=== PATIENT | male | born 1970 | race Caucasian/White ===

== ENCOUNTER → 2016-11-01 | Outpatient (REF) | LOC: WSOH 08:02 | DX: Z02.89 Encounter for other administrative examinations (principal) ==

== ENCOUNTER → 2020-09-02 | Outpatient (CLI) | payer OTHER | LOC: COL.RAD 10:06 | DX: M47.816 Spondylosis without myelopathy or radiculopathy, lumbar region (principal); M48.061 Spinal stenosis, lumbar region without neurogenic claudication; M96.1 Postlaminectomy syndrome, not elsewhere classified | CPT/HCPCS: A9585 ==

== ENCOUNTER 2020-09-09 16:02 | Inpatient (IN) | payer BC ==
[~2020-09-09] VITALS: Ht 198.1 cm; Wt 135.6 kg
[2020-09-09] MEDS ORDERED: DESYREL 100MG100 MG PO (16:15)
[2020-09-09] MEDS ORDERED: XANAX 1MG1 MG PO (16:15)
[2020-09-09] MEDS ORDERED: SOMA250 MG PO (16:16)
[2020-09-09] MEDS ORDERED: ULTRAM 50MG TAB50 MG PO (16:16)
[2020-09-09] MEDS ORDERED: OXYCONTIN 80MG80 MG PO (16:17)
[2020-09-09] MEDS ORDERED: OXYCONTIN 20MG20 MG PO (16:17)
[2020-09-09 16:33] LABS: HEMATOCRIT 41.4 % (42.0-52.0); HEMOGLOBIN 13.7 g/dl (13.5-18.0); MEAN CELL VOLUME 90 fl (80.0-100.0); MEAN CORPUSCULAR HEMOGLOBIN 30 pg (27.0-31.0); MEAN CORPUSCULAR HGB CONC 33 g/dl (33.0-37.0); MEAN PLATELET VOLUME 8.9 fl (7.4-10.4); PLATELET COUNT 301 K/mm3 (130-400); RED BLOOD COUNT 4.58 M/mm3 (4.20-5.60)
[2020-09-09 17:03] LABS: ALCOHOL(ethanol),MEDICAL < 10 mg/dL; TROPONIN-I < 0.012 ng/mL (0.000-0.035)
[2020-09-09 17:26] LABS: BAND 1 % (0-10); EOSINOPHIL 2 % (0-4); LYMPHOCYTE 26 % (20.0-51.0); NEUTROPHILS 60 % (42.0-75.2)
[2020-09-09 17:28] LABS: PLATELET ESTIMATE NORMAL (NORMAL)
[2020-09-09 17:33] LABS: ALBUMIN 3.9 gm/dL (3.5-5.0); BILIRUBIN,TOTAL 0.8 mg/dL (0.0-1.0); CALCIUM 8.7 mg/dL (8.4-10.2); CREATININE, serum 1.28 (0.66-1.25); MAGNESIUM 2.4 mg/dL (1.6-2.3); POTASSIUM 4.4 mmol/L (3.4-5.0); TOTAL PROTEIN 6.6 gm/dL (6.4-8.2)
[2020-09-09 17:53] LABS: COLLECTION METHOD CLEAN CATCH
[2020-09-09 18:06] LABS: MUCOUS Present /lpf; PH 5 (5-8); SQUAMOUS EPITHELIAL 0-2 /hpf; URINE APPEARANCE Clear; URINE BACTERIA None Seen /hpf; URINE BILIRUBIN Negative (NEGATIVE); URINE BLOOD Negative (NEGATIVE); URINE COLOR Straw; URINE GLUCOSE Negative (NEGATIVE); URINE KETONE Negative (NEGATIVE); URINE LEUKOCYTE ESTERASE Negative (NEGATIVE); URINE NITRATE Negative (NEGATIVE); URINE PROTEIN(semi-quant) Negative (NEGATIVE); URINE RBC 0-2 /hpf; URINE UROBILINOGEN Negative (NEGATIVE)
[2020-09-09 18:21] LABS: TRICYCLIC ANTIDEPRESS URINE NEGATIVE
[2020-09-09 21:11] VITALS: BP 142/79; PULSE 75; TEMP 97.7
--- NOTE | 2020-09-09 21:29 | NUR ---
Pt. sitting up in bed at this time. Pt. is A&OX3, assessment complete. INT to rt.and and lt. ac patent. Pt. reports pain to back at a 5 and pain to chest at a 4. Pt. denies further needs, call light within reach.
[2020-09-10 00:15] VITALS: BP 135/81; PULSE 70; TEMP 97.7
[2020-09-10 03:38] LABS: HEMATOCRIT 37.9 % (42.0-52.0); HEMOGLOBIN 12.6 g/dl (13.5-18.0)
[2020-09-10 04:10] VITALS: BP 129/70; PULSE 71; TEMP 97.9
[2020-09-10 07:08] LABS: CHOLESTEROL RISK RATIO 2.3
--- NOTE | 2020-09-10 07:20 | NUR ---
Lying in bed with eyes open. Minimal mid chest pain from the compressions that were performed. Denies any other pain at this time. Patient is alert and oriented x4. Discussed plan for today of having echo performed and cardiology to come in to see him. Patient verbalizes understanding and denies further needs.
[2020-09-10 07:25] VITALS: BP 122/77; PULSE 72; TEMP 98.5
[2020-09-10 09:45] LABS: BASO % 0.3 % (0.0-2.0); EOS # 0.1 (0.0-0.7); GRAN # 4.7 (1.4-6.5); GRAN % 80.6 % (42.2-75.2); HEMATOCRIT 37.2 % (42.0-52.0); HEMOGLOBIN 12.3 g/dl (13.5-18.0); LYMPH # 0.6 (1.2-3.4); LYMPH % 10.8 % (20.0-51.0); MEAN CELL VOLUME 91 fl (80.0-100.0); MEAN CORPUSCULAR HEMOGLOBIN 30 pg (27.0-31.0); MEAN CORPUSCULAR HGB CONC 33 g/dl (33.0-37.0); MEAN PLATELET VOLUME 8.9 fl (7.4-10.4); MONO # 0.4 (0.1-0.6); PLATELET COUNT 250 K/mm3 (130-400); RED BLOOD COUNT 4.07 M/mm3 (4.20-5.60); REDCELL DISTRIBUTION WIDTH-CV 13.2 % (11.5-14.5)
[2020-09-10 09:57] LABS: ALBUMIN 3.6 gm/dL (3.5-5.0); BILIRUBIN,TOTAL 1.1 mg/dL (0.0-1.0); CALCIUM 8.5 mg/dL (8.4-10.2); CREATININE, serum 0.85 (0.66-1.25); POTASSIUM 4.2 mmol/L (3.4-5.0); TOTAL PROTEIN 6.3 gm/dL (6.4-8.2)
[2020-09-10 11:26] VITALS: BP 127/75; PULSE 73; TEMP 97.9
--- NOTE | 2020-09-10 11:48 | NUR ---
Patient sitting up in bed and asks how much longer until he is able to get out of the hospital. Explain that it is important that we get the echo completed and that he see the commercial leasing agent to try to figure out why he went into cardiac arrest. Asked patient if there was somewhere or something going on that he was concerned about being in the hospital for and the patient declines. Explain that he had a big event happen with his heart stopping and it would be recommended to have the test done and see the specialist to try to figure out what happened. Patient says that his told him the same thing. Patient says that he understands and knows the importance of getting test done and seeing the specialist. Denies additional needs at this time.
--- NOTE | 2020-09-10 13:42 | NUR ---
Patient's in room with the patient. Dr. Mondragon wanted to speak with her when she came in. Contacted Dr. Mondragon and provided phone to spouse to speak with Dr. Mondragon. Patient was able to eat AHA diet without difficulty. Denies needs at this time.
--- NOTE | 2020-09-10 14:18 | NUR ---
First visit from the business system manager. No needs right now.
--- NOTE | 2020-09-10 15:10 | NUR ---
Echo being performed at bedside at this time.
[2020-09-10 15:42] LABS: HEMATOCRIT 37.2 % (42.0-52.0); HEMOGLOBIN 12.5 g/dl (13.5-18.0)
[2020-09-10 15:53] VITALS: BP 125/72; PULSE 76; TEMP 98
--- NOTE | 2020-09-10 16:31 | NUR ---
Patient sitting up in bed watching TV. Has been up independently in room. Has some soreness in mid chest from the compressions that were done. Having minimal low back pain at this time. Denies needs or concerns.
[2020-09-10 19:34] VITALS: BP 137/73; PULSE 69; TEMP 98.3
--- NOTE | 2020-09-10 20:52 | NUR ---
PT WANTING TO GO HOME, VERBALIZES WE AREN'T GIVING HIM HIS MEDS HE HAS BEEN TAKING FOR 7 YEARS AND JUST WANTS SOME EXPLANATION WHY HE WOULD NEED TO STAY. NOTIFIED DR PIERSON AND PHONE WAS GIVEN TO PATIENT TO SPEAK WITH DOCTOR.
[2020-09-10 21:19] LABS: HEMATOCRIT 39.1 % (42.0-52.0); HEMOGLOBIN 12.9 g/dl (13.5-18.0)
[2020-09-11 00:20] VITALS: BP 127/75; PULSE 73; TEMP 98.5
[2020-09-11 03:30] VITALS: BP 123/78; PULSE 66; TEMP 97.5
[2020-09-11 03:30] LABS: BASO % 0.9 % (0.0-2.0); EOS # 0.2 (0.0-0.7); EOS % 3.9 % (0-4.0); GRAN # 2.6 (1.4-6.5); GRAN % 58.3 % (42.2-75.2); HEMOGLOBIN 12.3 g/dl (13.5-18.0); LYMPH # 1.2 (1.2-3.4); LYMPH % 26.9 % (20.0-51.0); MEAN CELL VOLUME 89 fl (80.0-100.0); MEAN CORPUSCULAR HEMOGLOBIN 30 pg (27.0-31.0); MEAN CORPUSCULAR HGB CONC 34 g/dl (33.0-37.0); MEAN PLATELET VOLUME 8.5 fl (7.4-10.4); MONO # 0.4 (0.1-0.6); MONO % 9.8 % (1.7-9.3); PLATELET COUNT 221 K/mm3 (130-400); RED BLOOD COUNT 4.05 M/mm3 (4.20-5.60); REDCELL DISTRIBUTION WIDTH-CV 12.7 % (11.5-14.5)
[2020-09-11 03:35] LABS: HEMATOCRIT 35.9 % (42.0-52.0)
[2020-09-11 03:40] LABS: CALCIUM 8.4 mg/dL (8.4-10.2); CREATININE, serum 0.92 (0.66-1.25); POTASSIUM 4.5 mmol/L (3.4-5.0)
--- NOTE | 2020-09-11 06:21 | NUR ---
Patient resting in bed. Patient requested tylenol for chest pain from the compressions.
[2020-09-11 07:51] VITALS: BP 141/87; PULSE 75
[2020-09-11] MEDS ORDERED: MELATIN 3 MG-11 TAB PO (08:32)
--- NOTE | 2020-09-11 09:35 | NUR ---
SHIFT ASSESSMENT COMPLETED AND AM MEDICATIONS GIVEN AT THIS TIME. ECCHYMOSIS TO ABDOMEN NOTED. PATIENT REPORTS CHEST PAIN THAT IS WORSE WITH A COUGH AND HIS CHRONIC BACK PAIN. PATIENT NEURO CHECK NORMAL. VSS. DISCHARGE INSTRUCTIONS REVIEWED WITH PATIENT. PATIENT DENIES ANY QUESTIONS AT THIS TIME. RIGHT AC INT DISCONTINUED PER PENDING DISCHARGE. TIP INTACT. PATIENT TOLERATED WELL. TELEMETRY DISCONTINUED. PATIENT CHANGING, RIDE ON THEIR WAY. PATIENT PERSONAL BELONGINGS GATHERED.
--- NOTE | 2020-09-11 09:55 | NUR ---
PATIENT PERSONAL BELONGINGS GATHERED. PATIENT AMBULATED WITH SURGICAL STAFF TO PERSONAL VEHICLE. PATIENT DISCHARGED.
== END 2020-09-11 09:55 | disposition home or self-care (01) | DRG 917 ==
LOC: COL.ER 16:02 → SURG 18:23
PROVIDERS: Emergency Medicine; Nurse Practitioner Primary Care; Physician Assistant; ADMIT Student in an Organized Health Care Education/Training Program
DX: T40.2X1A Poisoning by other opioids, accidental (unintentional), initial encounter (principal); R09.2 Respiratory arrest; N17.9 Acute kidney failure, unspecified; M54.9 Dorsalgia, unspecified; G47.00 Insomnia, unspecified; R91.8 Other nonspecific abnormal finding of lung field; F41.9 Anxiety disorder, unspecified; F17.200 Nicotine dependence, unspecified, uncomplicated; G89.4 Chronic pain syndrome
CPT/HCPCS: 99239; C9113; J1650; J1885; J7030; Q9967

== ENCOUNTER → 2021-06-30 | Outpatient (CLI) | payer BC ==
[~2021-06-30] MED LIST: DESYREL 100MG100 MG PO; MELATIN 3 MG-11 TAB PO; OXYCONTIN 20MG20 MG PO; OXYCONTIN 80MG80 MG PO; SOMA250 MG PO; ULTRAM 50MG TAB50 MG PO; XANAX 1MG1 MG PO
== END ==
LOC: COL.RAD 13:49
DX: M47.816 Spondylosis without myelopathy or radiculopathy, lumbar region (principal)
CPT/HCPCS: J3301

== ENCOUNTER → 2021-08-15 | Outpatient (CLI) | payer BC | LOC: MHCPAIN 09:42 | DX: M47.816 Spondylosis without myelopathy or radiculopathy, lumbar region (principal); M54.50 Low back pain, unspecified; M53.3 Sacrococcygeal disorders, not elsewhere classified; G89.29 Other chronic pain | CPT/HCPCS: G0463 ==

== ENCOUNTER 2024-06-26 15:53 | Emergency (ER) | payer BC ==
[~2024-06-26] VITALS: Ht 195.6 cm; Wt 106.8 kg
[2024-06-26 15:57] VITALS: TEMP 98.3
[2024-06-26] MEDS ORDERED: VIRTUSSIN AC 1118 ML PO (17:46)
[2024-06-26 17:58] VITALS: BP 128/76; PULSE 92
== END 2024-06-26 17:59 | disposition home or self-care (01) ==
LOC: COL.ER 15:53
DX: J06.9 Acute upper respiratory infection, unspecified (principal); B34.9 Viral infection, unspecified

== ENCOUNTER 2024-07-01 12:02 | Emergency (ER) | payer BC ==
[~2024-07-01] VITALS: Ht 195.6 cm; Wt 102.3 kg
[~2024-07-01 12:02] MED LIST changes: +VIRTUSSIN AC 1118 ML PO
[2024-07-01] MEDS ORDERED: LR 1,000 ML IV ONE (14:45)
[2024-07-01] MEDS ORDERED: Pantoprazole 40 MG in NS 10 ML IV ONE (14:45)
[2024-07-01 15:23] LABS: BASO % 0.4 % (0.0-2.0); EOS # 0.1 K/mm3 (0.0-0.7); EOS % 0.9 % (0.0-4.0); GRAN # 5.7 K/mm3 (1.4-6.5); HEMATOCRIT 46.5 % (42.0-52.0); HEMOGLOBIN 16.1 g/dl (13.5-18.0); LYMPH # 1.1 K/mm3 (1.2-3.4); LYMPH % 14.6 % (20.0-51.0); MEAN CELL VOLUME 87 fl (80.0-100.0); MEAN CORPUSCULAR HEMOGLOBIN 30 pg (27-31); MEAN CORPUSCULAR HGB CONC 35 g/dl (33.0-37.0); MEAN PLATELET VOLUME 8.5 fl (7.4-10.4); MONO # 0.6 K/mm3 (0.1-0.6); MONO % 7.6 % (1.7-9.3); PLATELET COUNT 433 K/mm3 (130-400); RED BLOOD COUNT 5.37 M/mm3 (4.20-5.60)
[2024-07-01 15:48] LABS: ALBUMIN 3.7 g/dL (3.5-5.0); BILIRUBIN,TOTAL 0.7 mg/dL (0.2-1.2); CALCIUM 9.8 mg/dL (8.4-10.2); CREATININE, serum 0.99 mg/dL (0.72-1.25); POTASSIUM 3.9 mEq/L (3.5-4.5); TOTAL PROTEIN 8.1 g/dl (6.2-8.1)
[2024-07-01] MEDS ORDERED: MYCELEX10 MG/TAB MM (16:11)
[2024-07-01] MEDS ORDERED: PROTONIX 40MG T40 MG PO (16:11)
[2024-07-01 17:00] VITALS: BP 121/88; PULSE 88; TEMP 97.5
== END 2024-07-01 16:43 | disposition home or self-care (01) ==
LOC: COL.ER 12:02
PROVIDERS: Family Medicine
DX: K29.70 Gastritis, unspecified, without bleeding (principal); E86.0 Dehydration; R13.10 Dysphagia, unspecified; Z87.891 Personal history of nicotine dependence
CPT/HCPCS: J2470; J7120